=== PATIENT | male | born 1930 | race Caucasian/White ===

== ENCOUNTER 2018-04-10 14:47 | Outpatient (CLI) | payer MEDICARE, OTHER ==
--- NOTE | 2018-04-11 00:14 | CT Report ---
Reason: AGE-RELATED COGNITIVE DECLINE Procedure Date: 04/10/2018 Accession Number: [id number] / [id number] Procedure: CT - Head W/O CPT Code: FULL RESULT: EXAM: CT HEAD EXAM DATE: 04/10/2018 03:23 PM. CLINICAL HISTORY: AGE-RELATED COGNITIVE DECLINE. COMPARISON: None. TECHNIQUE: Multiaxial CT images were obtained from the foramen magnum to the vertex. Reformats: Sagittal and coronal. IV contrast: None. In accordance with CT protocol optimization, one or more of the following dose reduction techniques were utilized for this exam: automated exposure control, adjustment of mA and/or KV based on patient size, or use of iterative reconstructive technique. FINDINGS: Parenchyma: No intraparenchymal hemorrhage. No evidence of mass, midline shift or CT findings of acute infarction. Magallanes-white differentiation is distinct. Diffuse mild chronic microangiopathic white matter changes are evident. Extraaxial Spaces: Normal for age. No subdural or epidural collections identified. Ventricles: The ventricles and cortical sulci are enlarged, consistent with age-related tissue loss. Sinuses: Imaged paranasal sinuses, orbits, and mastoids show no significant abnormality. Bones: No evidence of fracture or calvarial defect. Other: None. IMPRESSION: Mild senescent changes without evidence of acute intracranial abnormality. RADIA
== END 2018-04-10 14:48 | disposition home or self-care (01) ==
LOC: DI 14:47
PROVIDERS: ATTEND Family Medicine
DX: R41.81 Age-related cognitive decline (principal)
CPT/HCPCS: 70450

== ENCOUNTER 2020-10-31 17:14 | Outpatient (CLI) | payer MEDICARE, OTHER | END 2020-10-31 17:15 | disposition critical access hospital (66) | LOC: EMS 17:14 | DX: R46.89 Other symptoms and signs involving appearance and behavior (principal) | CPT/HCPCS: A0425; A0429 ==

== ENCOUNTER 2020-10-31 17:48 | Emergency (ER) | payer MEDICARE, OTHER ==
[2020-10-31 19:05] LABS: BASOPHILS % (AUTO) 0.3 %; EOSINOPHILS % (AUTO) 0.1 %; HCT - HEMATOCRIT 38.6 % (42.0-52.0); LYMPHOCYTES # (AUTO) 1.5 10^3/uL (1.5-3.5); LYMPHOCYTES % (AUTO) 21.7 %; MEAN CORPUSCULAR HGB CONC 33.7 g/dL (32.0-36.0); MEAN PLATELET VOLUME 9.8 fL (7.4-11.4); NEUTROPHILS # (AUTO) 4.1 10^3/uL (1.5-6.6); PLT - PLATELET COUNT 193 10^3/uL (130-450); RED BLOOD COUNT 3.94 10^6/uL (4.70-6.10); RED CELL DISTRIBUTION WIDTH 13.2 % (12.0-15.0); WHITE BLOOD COUNT 6.7 x10^3/uL (4.8-10.8)
--- NOTE | 2020-10-31 19:17 | ED Physician Documentation ---
History of Present Illness - Stated complaint Stated Complaint: DISORIENTED - Chief complaint Chief Complaint: General - History obtained from History obtained from: Patient, EMS - History of Present Illness Timing: Unknown Pain level max: 0 Pain level now: 0 - Additonal information Additional information: Patient is an 89-year-old male who was brought in by EMS today. They state that he was attempting to get on the [facility]. They state that the patient lives in [place]. He states that he could not find his wallet, it turned out to be in his other pocket. The patient lives alone. He states that his doctor so he stopped all of his medications. Does not know what his medications are. Patient has no complaints currently. EMS concerned for dementia and the fact that he lives alone. Review of Systems Unable to obtain: Confused Ten Systems: 10 systems reviewed and negative Constitutional: denies: Fever, Chills Nose: denies: Rhinorrhea / runny nose, Congestion Skin: denies: Rash Musculoskeletal: denies: Neck pain, Back pain Neurologic: reports: Confused. denies: Focal weakness, Numbness, Headache PD PAST MEDICAL HISTORY - Past Medical History Past Medical History: Yes Cardiovascular: Hypertension, High cholesterol, Coronary artery disease Respiratory: None Neuro: None Endocrine/Autoimmune: None GI: GERD : Benign prostate hypertrophy Psych: None Musculoskeletal: Osteoarthritis, Gout Derm: None - Past Surgical History Past Surgical History: No General: Colonoscopy HEENT: Cataracts, Tonsil/Adenoidectomy - Present Medications Home Medications: Ambulatory Orders Medication Instructions Recorded Confirmed Aspirin [Aspir 81] 81 mg PO 09/22/13 09/22/13 Gabapentin [Neurontin] 300 mg PO 09/22/13 09/22/13 Hydrochlorothiazide 25 mg PO 09/22/13 09/22/13 Lisinopril 10 mg PO 09/22/13 09/22/13 Simvastatin 40 mg PO 09/22/13 09/22/13 - Allergies Allergies/Adverse Reactions: Allergies Allergy/AdvReac Type Severity Reaction Status Date / Time Penicillins Allergy Intermediate Hives Verified 10/31/20 18:03 streptomycin [Streptomycin] Allergy Intermediate Unknown Verified 10/31/20 18:03 - Social History Does the pt smoke?: No Smoking Status: Never smoker Does the pt drink ETOH?: No Does the pt have substance abuse?: No - Immunizations Immunizations are current?: Yes - POLST Patient has POLST: No PD ED PE NORMAL - Vitals Vital signs reviewed: Yes - General General: No acute distress, Well developed/nourished, Other (Alert, oriented to person and place but not to time) - HEENT HEENT: Atraumatic, PERRL, Ears normal, Moist mucous membranes, Pharynx benign - Neck Neck: Supple, no meningeal sign - Cardiac Cardiac: RRR, Strong equal pulses - Respiratory Respiratory: No respiratory distress, Clear bilaterally - Abdomen Abdomen: Soft, Non tender, Non distended - Back Back: No spinal TTP - Derm Derm: Warm and dry, No rash - Extremities Extremities: No deformity, Normal ROM s pain, No calf tenderness / cord - Neuro Neuro: chick grader 2-12 intact, No motor deficit, No sensory deficit Eye Opening: Spontaneous Motor: Obeys Commands Verbal: Confused GCS Score: 14 - Psych Psych: Normal mood, Normal affect Results - Vitals Vitals: Vital Signs - 24 hr 10/31/20 10/31/20 10/31/20 17:58 19:12 19:20 Temperature 37.6 C 98.1 C H Heart Rate 77 71 Respiratory 14 16 Rate Blood Pressure 185/86 H 160/101 H O2 Saturation 100 100 10/31/20 10/31/20 19:48 20:34 Temperature Heart Rate 72 Respiratory 16 16 Rate Blood Pressure O2 Saturation 98 Oxygen O2 Source Room air - Labs Labs: Laboratory Tests 10/31/20 10/31/20 10/31/20 18:58 18:58 18:58 WBC 6.7 RBC 3.94 L Hgb 13.0 L Hct 38.6 L MCV 98.0 H MCH 33.0 H MCHC 33.7 RDW 13.2 Plt Count 193 MPV 9.8 Neut # (Auto) 4.1 Lymph # (Auto) 1.5 [place] # (Auto) 1.0 Eos # (Auto) 0.0 Baso # (Auto) 0.0 Absolute Nucleated RBC 0.00 Nucleated RBC % 0.0 Sodium 137 Potassium 4.1 Chloride 98 L Carbon Dioxide 22 Anion Gap 17.0 H BUN 22 H Creatinine 0.9 Estimated GFR (MDRD) 80 L Glucose 93 Calcium 9.6 Total Bilirubin 2.5 H AST 27 ALT 13 Alkaline Phosphatase 64 Total Protein 6.6 L Albumin 3.7 Globulin 2.9 Albumin/Globulin Ratio 1.3 Lipase 29 TSH 2.30 Salicylates < 6.0 Acetaminophen 12 Ethyl Alcohol < 5.0 - Rads (name of study) head CT Radiology: Prelim report reviewed, EMP read contemporaneously, See rad report (no acute abnormality. ) PD MEDICAL DECISION MAKING - ED course Complexity details: reviewed old records, reviewed results, re-evaluated patient, considered differential, d/w patient ED course: No acute findings on head CT or laboratory testing. Patient reportedly does not have any family nearby. He does have an executor of his estate that lives in [place]. There apparently has been ongoing cognitive decline for the past 1 to 2 years. We will consult social work in the morning to see if placement is a potential option for him. APS will likely need to be involved to evaluate his living situation as well. No urinalysis is complete at the end of my shift, signed out to the oncoming emergency department physician for social work consult and urinalysis. This document was made in part using voice recognition software. While efforts are made to proofread this document, sound alike and grammatical errors may occur. Departure - Departure Clinical Impression: Confusion Condition: Stable
[2020-10-31 19:22] LABS: ACETAMINOPHEN 12 ug/mL (10-30); ALBUMIN 3.7 g/dL (3.2-5.5); ALBUMIN/GLOBULIN RATIO 1.3 (1.0-2.2); ALKALINE PHOSPHATASE 64 IU/L (42-121); ALT ALANINE AMINOTRANSFERASE 13 IU/L (10-60); AST ASPARTATE AMINOTRANSFERASE 27 IU/L (10-42); BILIRUBIN,TOTAL 2.5 mg/dL (0.2-1.0); BUN - BLOOD UREA NITROGEN 22 mg/dL (6-20); CALCIUM 9.6 mg/dL (8.5-10.3); CARBON DIOXIDE - CO2 22 mmol/L (21-32); CHLORIDE 98 mmol/L (101-111); CREATININE 0.9 mg/dL (0.6-1.2); ETOH - ETHANOL < 5.0 mg/dL; GFR - MDRD 80 (>89); GLUCOSE 93 mg/dL (70-100); LIPASE 29 U/L (22-51); POTASSIUM 4.1 mmol/L (3.5-5.0); SALICYLATE < 6.0 mg/dL; SODIUM 137 mmol/L (135-145); TOTAL PROTEIN 6.6 g/dL (6.7-8.2)
--- NOTE | 2020-10-31 19:54 | CT Report ---
PROCEDURE: HEAD WO INDICATIONS: aloc TECHNIQUE: Noncontrast 4.5 mm thick angled axial sections acquired from the foramen magnum to the vertex. For r adiation dose reduction, the following was used: automated exposure control, adjustment of mA and/or kV according to patient size. COMPARISON: 04/10/2018. FINDINGS: Image quality: There is mild motion artifact. CSF spaces: There is moderate cerebral volume loss with prominence of the ventricles and sulci. Basa l cisterns are patent. No extra-axial fluid collections. Brain: No intracranial hemorrhage, mass, or mass effect. There are periventricular and subcortical w susie matter hypodensities consistent with mild chronic small vessel ischemic changes. Magallanes-white sonali er interface appears preserved. Skull and face: Calvarium and visualized facial bones are intact, without suspicious lesions. Sinuses: Visualized sinuses and mastoids are clear. IMPRESSION: 1. No acute intracranial abnormality. 2. Moderate cerebral volume loss and mild chronic white matter small vessel ischemic changes. Reviewed by: Dhiraj Crow MD on 10/31/2020 7:53 PM PDT Approved by: Dhiraj Crow MD on 10/31/2020 7:53 PM PDT Station ID: [id number]
[2020-10-31] MEDS ORDERED: OLANZapine 10 MG VIAL IM STA (23:56)
--- NOTE | 2020-11-01 00:29 | ED Physician Documentation ---
ED Addendum - Addendum Addendum: 11/01/20 00:19 Received sign out from Dr. Mcneal, plan is to hold patient in ED until SW consult in the morning. Patient became increasing agitated early in my shift and demanding to leave. I assessed patient and he is very confused, accusing me of trying to kill him. He asks me how many people I kill per day. He is angry with me and says I took patient from his car and forced him to come here, although he cannot identify where he is at this time. He became violent with staff, threatening to hit ED staff. Despite my attempts to deescalate the situation by talking calmly to patient and explaining to him that I am trying to help him and that he is confused, he continued to try to get out of bed and demanding to leave. He is given zyprexa IM as a chemical restraint but did not require physical restraint. I stayed with patient until he became drowsy to ensure he would not get out of bed again. 11/01/20 18:17 Care of patient turned over to Dr. Lux at end of my shift pending SW consult Face to Face for Restraints - Immediate Situation Face to Face Evaluation Date: 11/01/20 Face to Face Evaluation Time: 00:00 Restraint Situation: Chemical Patient's Reactions to the Intervention: Asking for information, Swearing, Other (angry, delusional/confused ) - Behavioral Condition Attitude: Other (angry, accusatory) Behavior: Uncooperative, Agitated Orientation: Person Mood: Angry - Evaluation Review of Systems: uncooperative with my attempts to obtain ROS information Pertinent History/Illicit Drugs/Medications/Results: confused, unable to provide reliable PMHx. - Plan Need to Continue or Terminate Violent or Chemical Restraint: chemical restraints only (no restraints to discontinue)
[2020-11-01 04:55] LABS: MUDS CUTOFF CONCENTRATIONS CUTOFF CONC BELOW:
[2020-11-01 05:10] LABS: GLUCOSE, URINE (UA) NEGATIVE (NEGATIVE); KETONES,URINE (UA) >=80 mg/dL (NEGATIVE); LEUKOCYTE ESTERASE, URINE NEGATIVE (NEGATIVE); NITRITE,URINE NEGATIVE (NEGATIVE); OCCULT BLOOD,URINE NEGATIVE (NEGATIVE); PROTEIN,URINE NEGATIVE (NEGATIVE); UROBILINOGEN,URINE >=8.0 E.U./dL (NORMAL)
[2020-11-01 05:12] LABS: BACTERIA,URINE Rare /HPF (None Seen); BILIRUBIN,URINE NEGATIVE (NEGATIVE); CLARITY,URINE HAZY (CLEAR); ICTOTEST,URINE NEGATIVE; RBC,URINE 0-5 /HPF (0-5); SQUAMOUS EPITHELIAL CELL,UR RARE Squamous (<= Few); WBC,URINE 0-3 /HPF (0-3)
[2020-11-01 05:13] LABS: AMORPHOUS SEDIMENT,UR Moderate /LPF; AMPHETAMINE SCREEN,URINE NEGATIVE (NEGATIVE); BARBITURATE SCREEN,UR NEGATIVE (NEGATIVE); BENZODIAZEPINES SCREEN, URINE NEGATIVE (NEGATIVE); COCAINE SCREEN URINE NEGATIVE (NEGATIVE); METHADONE SCREEN, URINE NEGATIVE (NEGATIVE); METHAMPHETAMINES SCREEN, URINE NEGATIVE (NEGATIVE); OPIATE SCREEN, URINE NEGATIVE (NEGATIVE); OXYCODONE SCREEN, URINE NEGATIVE (NEGATIVE); PROPOXYPHENE SCREEN, URINE NEGATIVE (NEGATIVE); THC CANNABINOID SCREEN, URINE NEGATIVE (NEGATIVE); TRICYCLIC ANTIDEPRESSANT,URINE NEGATIVE (NEGATIVE)
--- NOTE | 2020-11-01 10:32 | ED Physician Documentation ---
ED Addendum - Addendum Addendum: The patient seems to be calm and interactive well this morning. He can relate events from last evening. He was hungry for breakfast. Social work talked with the patient and his friend who is named in his healthcare power of customer quality specialist (but does not currently have full power of customer quality specialist ). The friend is coming here by plane in should be arriving this evening with likely arriving in the ER around 6 PM. The plan is for his friend to get the car keys for patient's car and go to where the car is parked pick it up come back and bring the patient home and be with him. They will look into home health aides versus assisted living etc. Apparently the patient had been having some declining dementia for a while but there had not been a plan per se for if he becomes harder to care for himself. The social workers providing resources to them to help with subsequent planning. 11/01/20 10:30
[2020-11-01] MEDS ORDERED: QUEtiapine 100 MG TABLET PO STA (20:52)
[2020-11-01] MEDS ORDERED: traZODone 50 MG TABLET PO STA (20:52)
--- NOTE | 2020-11-02 21:05 | ED Physician Documentation ---
ED Addendum - Addendum Addendum: 11/02/20 21:05 Patient was stable today. Now reportedly plan is for him to go to assisted living tomorrow. They requested a prescription for as needed antianxiety medicine and prescription for Seroquel 50 mg p.o. twice daily as needed anxiety #60 was written.
[2020-11-03 09:34] VITALS: BP 128/83
== END 2020-11-03 10:25 | disposition home or self-care (01) ==
LOC: EDUNIT# → ED 17:48
DX: R41.0 Disorientation, unspecified (principal); R45.1 Restlessness and agitation; I10 Essential (primary) hypertension
CPT/HCPCS: 36415; 70450; 80053; 80306; 80307; 81001; 83690; 84443; 85025; 96372; 99283; 99285; A9270; G0480; 80320; 80329; 81003; 87086

== ENCOUNTER 2020-11-03 10:44 | Outpatient (CLI) | payer MEDICARE, OTHER | END 2020-11-03 10:45 | disposition other institution (70) | LOC: EMS 10:44 | PROVIDERS: ATTEND Emergency Medicine | DX: R41.0 Disorientation, unspecified (principal) | CPT/HCPCS: A0425; A0428 ==

== ENCOUNTER 2020-11-03 18:37 | Outpatient (CLI) | payer MEDICARE, OTHER | END 2020-11-03 18:38 | disposition critical access hospital (66) | LOC: EMS 18:37 | DX: S00.03XA Contusion of scalp, initial encounter (principal); W19.XXXA Unspecified fall, initial encounter; Y92.10 Unspecified residential institution as the place of occurrence of the external cause | CPT/HCPCS: A0425; A0429 ==

== ENCOUNTER 2020-11-03 18:55 | Inpatient (IN) | payer MEDICARE, OTHER ==
--- NOTE | 2020-11-03 19:03 | ED Physician Documentation ---
PD HPI Fall - Stated complaint Stated Complaint: FOUND ON THE GROUND - History obtained from History obtained from: EMS - Treatment prior to arrival Treatment prior to arrival: 89-year-old gentleman who was in the emergency department for several days and discharged yesterday to assisted living reportedly had an unwitnessed fall at the assisted living facility today. He was on the ground for up to 2 hours basically may have fallen off the couch. He is unable to provide any history due to altered mental status and dementia. Review of Systems Unable to obtain: Dementia PD PAST MEDICAL HISTORY - Past Medical History Cardiovascular: Hypertension, High cholesterol, Coronary artery disease Respiratory: None Neuro: None Endocrine/Autoimmune: None GI: GERD : Benign prostate hypertrophy Psych: None Musculoskeletal: Osteoarthritis, Gout Derm: None - Past Surgical History Past Surgical History: No General: Colonoscopy HEENT: Cataracts, Tonsil/Adenoidectomy - Present Medications Home Medications: Ambulatory Orders Medication Instructions Recorded Confirmed Aspirin [Aspir 81] 81 mg PO 09/22/13 09/22/13 Gabapentin [Neurontin] 300 mg PO 09/22/13 09/22/13 Hydrochlorothiazide 25 mg PO 09/22/13 09/22/13 Lisinopril 10 mg PO 09/22/13 09/22/13 Simvastatin 40 mg PO 09/22/13 09/22/13 QUEtiapine [SEROquel] 50 mg PO BID PRN #60 tablet 11/02/20 - Allergies Allergies/Adverse Reactions: Allergies Allergy/AdvReac Type Severity Reaction Status Date / Time Penicillins Allergy Intermediate Hives Verified 11/03/20 19:04 streptomycin [Streptomycin] Allergy Intermediate Unknown Verified 11/03/20 19:04 - Social History Does the pt smoke?: No Smoking Status: Never smoker Does the pt drink ETOH?: No Does the pt have substance abuse?: No - Immunizations Immunizations are current?: Yes - POLST Patient has POLST: No PD ED PE NORMAL - Vitals Vital signs reviewed: Yes - General General: Other (He is moaning in pain, talking in gibberish. Really unable to cooperate with history or physical) - HEENT HEENT: PERRL - Neck Neck: No bony TTP (But maintained in c-collar pending imaging) - Cardiac Cardiac: RRR, No murmur - Respiratory Respiratory: No respiratory distress, Clear bilaterally - Abdomen Abdomen: Normal bowel sounds, Soft, Non tender - Back Back: Other (I think he is tender to the mid L-spine, hard to tell) - Extremities Extremities: No deformity, No tenderness to palpate, Normal ROM s pain, Other (No obvious pain with range of motion of any major extremity) - Neuro Eye Opening: To Voice Motor: Localizes to Pain Verbal: Inappropriate GCS Score: 11 Results - Vitals Vitals: Vital Signs - 24 hr 11/03/20 11/03/20 11/03/20 19:00 19:04 19:10 Temperature 36.7 C 36.7 C 36.7 C Heart Rate 81 82 81 Respiratory 19 19 19 Rate Blood Pressure 124/91 H 124/91 H 125/90 H O2 Saturation 99 99 99 Oxygen O2 Source Room air - Labs Labs: Laboratory Tests 11/03/20 11/03/20 11/03/20 19:12 19:12 20:37 WBC 13.3 H RBC 3.99 L Hgb 13.3 L Hct 39.4 L MCV 98.7 H MCH 33.3 H MCHC 33.8 RDW 13.2 Plt Count 234 MPV 9.7 Neut # (Auto) 10.2 H Lymph # (Auto) 1.8 [place] # (Auto) 1.2 H Eos # (Auto) 0.0 Baso # (Auto) 0.0 Absolute Nucleated RBC 0.00 Nucleated RBC % 0.0 Sodium 139 Potassium 4.2 Chloride 102 Carbon Dioxide 26 Anion Gap 11.0 BUN 33 H Creatinine 0.9 Estimated GFR (MDRD) 80 L Glucose 101 H Calcium 9.8 Phosphorus 2.5 Magnesium 2.0 Total Bilirubin 2.0 H AST 54 H ALT 22 Alkaline Phosphatase 58 Total Creatine Kinase 239 Total Protein 6.8 Albumin 3.7 Globulin 3.1 Albumin/Globulin Ratio 1.2 Urine Color DARK YELLOW Urine Clarity CLEAR Urine pH 5.5 Ur Specific [place] >=1.030 H Urine Protein TRACE Urine Glucose (UA) NEGATIVE Urine Ketones 40 H Urine Occult Blood LARGE H Urine Nitrite NEGATIVE Urine Bilirubin NEGATIVE Urine Urobilinogen 1 (NORMAL) Ur Leukocyte Esterase TRACE H Urine RBC TNTC H Urine WBC 6-10 H Ur Squamous Epith Cells FEW Squamous Urine Bacteria None Seen Ur Microscopic Review INDICATED Urine Culture Comments INDICATED - Rads (name of study) CT head, CT and L-spine's Radiology: EMP read contemporaneously (Chronic and degenerative changes without acute trauma) PD MEDICAL DECISION MAKING - ED course ED course: 89-year-old gentleman with dementia presents from Assisted living where he has been only for 1 day after what sounds like a fall off the couch with unknown downtime but not more than a few hours. He seems like he is complaining of back pain in the spine and head were imaged without pertinent positive findings. He does have an elevated white count, 13 today, 11 a few days ago. He had no evidence of pyuria the other day but does now. His encephalopathy is much more dense than it was previously. Assume underlying medical conditions such as UTI making his dementia/encephalopathy worsening mandates treatment because of elevated white count and worsening indices. Spoke with Dr. Rodríguez for admission at 9 PM. Departure - Departure Disposition: ED Place in Observation Clinical Impression: Encephalopathy, Pyuria Fall Qualifiers: Encounter type: initial encounter Qualified Code(s): W19.XXXA - Unspecified fall, initial encounter Back injury Qualifiers: Encounter type: initial encounter Qualified Code(s): S39.92XA - Unspecified injury of lower back, initial encounter Head injury Qualifiers: Encounter type: initial encounter Qualified Code(s): S09.90XA - Unspecified injury of head, initial encounter Condition: Stable
[2020-11-03 19:15] LABS: BASOPHILS % (AUTO) 0.2 %; EOSINOPHILS % (AUTO) 0.2 %; HCT - HEMATOCRIT 39.4 % (42.0-52.0); HGB - HEMOGLOBIN 13.3 g/dL (14.0-18.0); LYMPHOCYTES # (AUTO) 1.8 10^3/uL (1.5-3.5); LYMPHOCYTES % (AUTO) 13.4 %; MEAN CORPUSCULAR HEMOGLOBIN 33.3 pg (27.0-31.0); MEAN CORPUSCULAR HGB CONC 33.8 g/dL (32.0-36.0); MEAN CORPUSCULAR VOLUME 98.7 fL (80.0-94.0); MEAN PLATELET VOLUME 9.7 fL (7.4-11.4); MONOCYTES # (AUTO) 1.2 10^3/uL (0.0-1.0); MONOCYTES % (AUTO) 8.8 %; NEUTROPHILS # (AUTO) 10.2 10^3/uL (1.5-6.6); NEUTROPHILS % (AUTO) 76.5 %; PLT - PLATELET COUNT 234 10^3/uL (130-450); RED BLOOD COUNT 3.99 10^6/uL (4.70-6.10); RED CELL DISTRIBUTION WIDTH 13.2 % (12.0-15.0); WHITE BLOOD COUNT 13.3 x10^3/uL (4.8-10.8)
[2020-11-03 19:30] LABS: ALBUMIN 3.7 g/dL (3.2-5.5); ALBUMIN/GLOBULIN RATIO 1.2 (1.0-2.2); CALCIUM 9.8 mg/dL (8.5-10.3); CREATININE 0.9 mg/dL (0.6-1.2); PHOSPHORUS 2.5 mg/dL (2.5-4.6); POTASSIUM 4.2 mmol/L (3.5-5.0); TOTAL PROTEIN 6.8 g/dL (6.7-8.2)
--- NOTE | 2020-11-03 19:53 | CT Report ---
PROCEDURE: HEAD WO INDICATIONS: fall, , poss head inj/neck pain/ams TECHNIQUE: Noncontrast 4.5 mm thick angled axial sections acquired from the foramen magnum to the vertex. For r adiation dose reduction, the following was used: automated exposure control, adjustment of mA and/or kV according to patient size. COMPARISON: 10/31/2020 FINDINGS: Image quality: Excellent. CSF spaces: Basal cisterns are patent. No extra-axial fluid collections. Ventricles are normal in size and shape. Age-related volume loss is moderate. Subcortical and periventricular hypodensities a re consistent with small vessel ischemia. Brain: No midline shift. No intracranial masses or hemorrhage. Magallanes-white matter interface is norm al. Skull and face: Calvarium and visualized facial bones are intact, without suspicious lesions. Sinuses: Visualized sinuses and mastoids are clear. IMPRESSION: 1. No acute intracranial abnormality. 2. Age-related volume loss and chronic small vessel ischemic changes. Reviewed by: Jesus Randolph on 11/03/2020 7:51 PM PDT Approved by: Jesus Randolph on 11/03/2020 7:51 PM PDT Station ID: [id number]
--- NOTE | 2020-11-03 19:55 | CT Report ---
PROCEDURE: CERVICAL SPINE WO INDICATIONS: fall, , poss head inj/neck pain/ams TECHNIQUE: Noncontrast 3 mm thick sections acquired from the skull base to the T4 level. Sagittal and coronal r eformats were then constructed. For radiation dose reduction, the following was used: automated exp osure control, adjustment of mA and/or kV according to patient size. COMPARISON: None. FINDINGS: Image quality: Excellent. Bones: No fractures or dislocations. Visualized superior ribs are intact. There are multilevel deg enerative changes and multilevel disc disease. Soft tissues: Prevertebral soft tissues are normal in thickness. No paravertebral hematomas. No ap ical pneumothoraces. IMPRESSION: Multilevel degenerative changes of the cervical spine. No acute traumatic abnormality. Reviewed by: Jesus Randolph on 11/03/2020 7:54 PM PDT Approved by: Jesus Randolph on 11/03/2020 7:54 PM PDT Station ID: [id number]
--- NOTE | 2020-11-03 19:59 | CT Report ---
PROCEDURE: LUMBAR SPINE WO INDICATIONS: fall, , poss head inj/neck pain/ams TECHNIQUE: Noncontrast 3 mm thick sections acquired from the T12 level to the sacrum. Sagittal and coronal refo rmats were constructed. For radiation dose reduction, the following was used: automated exposure co ntrol, adjustment of mA and/or kV according to patient size. COMPARISON: None. FINDINGS: Image quality: Excellent. Bones: Severe multilevel degenerative changes and multilevel disc disease. No acute vertebral body co mpression fractures. No suspicious lytic or blastic bony lesions. Central spinal caliber is of norm al overall caliber. No pars defects. L1-2: Complete loss of the disc space with disc osteophytes causing severe right and moderate left f oraminal stenosis. The central canal has moderate stenosis. L1-L2: Disc height loss with disc osteophytes causing severe bilateral foraminal stenosis. The mickey tral canal has moderate stenosis. L3-4: L2 30 Disc height loss with disc osteophytes cause moderate bilateral foraminal stenosis. Th e central canal has moderate stenosis. L4-L5: Degenerative disc disease causes moderate bilateral foraminal stenosis. The central canal is mild stenosis. L5-S1: Moderate disc disease and disc osteophytes cause mild bilateral foraminal stenosis. Soft tissues: No retroperitoneal masses or hematomas. Visualized aorta is normal in caliber. IMPRESSION: 1. No acute traumatic abnormality of the lumbar spine. 2. The level degenerative disc disease. Reviewed by: Jesus Randolph on 11/03/2020 7:57 PM PDT Approved by: Jesus Randolph on 11/03/2020 7:57 PM PDT Station ID: [id number]
--- NOTE | 2020-11-03 20:01 | CT Report ---
PROCEDURE: THORACIC SPINE WO INDICATIONS: fall, , poss head inj/neck pain/ams TECHNIQUE: Noncontrast 3 mm thick sections acquired through the region of interest in the thoracic spine. Sagit fransisco and coronal reformats were then constructed. For radiation dose reduction, the following was used : automated exposure control, adjustment of mA and/or kV according to patient size. COMPARISON: None. FINDINGS: Image quality: Excellent. Bones: There is normal overall bony alignment. No acute vertebral body compression fractures. No s uspicious sclerotic or lytic bony lesions. Central spinal canal is of normal overall caliber. The b ones are demineralized. There are multilevel degenerative changes and multilevel disc disease. There is rightward curvature of the thoracic spine and kyphosis of the thoracic spine. Soft tissues: No paravertebral masses or hematomas. Visualized posteromedial lungs appear clear. IMPRESSION: Multilevel degenerative changes of the thoracic spine with no acute traumatic abnormality . Reviewed by: Jesus Randolph on 11/03/2020 7:59 PM PDT Approved by: Jesus Randolph on 11/03/2020 7:59 PM PDT Station ID: [id number]
[2020-11-03 20:46] LABS: GLUCOSE, URINE (UA) NEGATIVE (NEGATIVE); KETONES,URINE (UA) 40 mg/dL (NEGATIVE); LEUKOCYTE ESTERASE, URINE TRACE (NEGATIVE); NITRITE,URINE NEGATIVE (NEGATIVE); OCCULT BLOOD,URINE LARGE (NEGATIVE); PH,URINE 5.5 PH (5.0-7.5); PROTEIN,URINE TRACE mg/dL (NEGATIVE); UROBILINOGEN,URINE 1 (NORMAL) E.U./dL (NORMAL)
[2020-11-03 20:51] LABS: BILIRUBIN,URINE NEGATIVE (NEGATIVE); CLARITY,URINE CLEAR (CLEAR); ICTOTEST,URINE NEGATIVE; RBC,URINE TNTC /HPF (0-5)
[2020-11-03 20:52] LABS: BACTERIA,URINE None Seen /HPF (None Seen); SQUAMOUS EPITHELIAL CELL,UR FEW Squamous (<= Few)
[2020-11-03] MEDS ORDERED: cefTRIAXone 1 GM in SODIUM CHLORIDE 0.9% MINIBAG 100 ML IV STA (21:00)
[2020-11-03] MEDS ORDERED: oxyCODONE 5 MG TABLET PO PRN (21:00)
[2020-11-03] MEDS ORDERED: ACETAMINOPHEN 325 MG TABLET PO PRN (21:00)
[2020-11-03] MEDS ORDERED: SODIUM CHLORIDE FLUSH 0.9% 10 ML SYRINGE IVP PRN (21:00)
[2020-11-03] MEDS ORDERED: ONDANSETRON 4 MG/2 ML VIAL IVP PRN (21:00)
[2020-11-03] MEDS ORDERED: ONDANSETRON ODT 4 MG TABLET TL PRN (21:00)
--- NOTE | 2020-11-03 21:12 | HISTORY & PHYSICAL EXAMINATION ---
Chief Complaint - Chief Complaint Chief Complaint: found down at [facility] History of Present Illness - Admitted From Admitted From:: [facility] after less than 12 hours there - History Obtained From Records Reviewed: [facility] History obtained from: J[facility] Casarez Exam Limitations: patient has moderate cognitive deficit and is sedated - History of Present Illness HPI Comment/Other: This is an 89-year-old gentleman who is seen by Dr. Alexander and has a history of age-related cognitive decline. We really do not have much about him in our EMR but he was seen October 31 due to erratic behavior. He lives in [place] and [place], could not find his wallet, and drove past the barrier and had to be told to please leave the ferry terminal. It made matters worse that he kept on saying he had to "[place] the [place]" and he did not seem to realize he was on the island. In the emergency room he had normal vital signs and normal labs. His main finding was that of a demented elderly gentleman who is quite querulous and irritated at being in the emergency room and insisting that he was "fine". Social work was consulted, and the patient ended up staying there in the emergency room until a friend of his/POA, could come assess the situation. His friend is his power of attorney recruiter. Kaz has known him since their friendship began in [place] in the 1970s. Kaz is a model photographers', and Mr. Sanches shared his love of photography but the patient was more dedicated to the art of a dark room, building them, etc. Kaz lives in [place] in [facility] and had to fly up here to take care of things. He is currently staying in the patient's house as the dust settles from this ongoing social situation. The patient was eventually placed at [facility] this morning. He was now brought in by EMS. He had an unwitnessed ground-level fall at [facility] where he had "fallen off a sofa" and lay on the ground for 2 hours without being found. He is much more encephalopathic than he was when he left here. He was pale, with unlabored respirations and normal blood pressure and normal oxygenation. He was evaluated by Dr. Narayan and found to be a minimally responsive elderly gentleman. Negative physical exam findings without focal neurological deficits. No abdominal pain. His labs show him to have a newly elevated white cell count of 13.3 and a urine that is mildly suggestive of possible infection. His previous urinalysis was completely clear. C-spine and thoracic spine CTs are negative. What we can see of lung acosta show him to have bibasilar atelectasis but no pneumonia. He is now brought in for acute encephalopathy, possible UTI. History - Past Medical History Cardiovascular: reports: Hypertension, High cholesterol, Coronary artery disease Respiratory: reports: None Neuro: reports: Dementia Endocrine/Autoimmune: reports: None GI: reports: GERD : reports: Benign prostate hypertrophy Psych: reports: None Musculoskeletal: reports: Osteoarthritis, Gout Derm: reports: None - Past Surgical History General: reports: Colonoscopy, Other (Bilateral inguinal hernia repairs) HEENT: reports: Cataracts, Tonsil/Adenoidectomy, Other (Thyroglossal duct cyst 1980) - Family & Social History Family History Comment/Other: Dad of a heart attack in his 60s. Mom of cancer in her 80s. No siblings, he was an only child. Never and never had children Living arrangement: Assisted living (All of 24 hours starting today) Living Situation: Alone Social History Notes: He was a "late in life" child. A slightly introverted gentleman. Was living in [place] doing photography when he met his power of attorney recruiter and friend Kaz Diaz. He moved to [facility] many years ago because he loves boating. He lived on a boat during the summer for decades. In the winter he house that friends houses. When his friends no longer needed him to house it, he ended up buying a mobile home and he lives in that mobile home for the last 15 years. He used to have a friend that he visited at [facility] 1-2 times a week. He knew quite a few people there and there is very content with the activities and the games they played there as well as visiting his friends. Unfortunately when Louie came, his entire group of friends is now , at least that is what he tells Kaz. He became very isolated living in his mobile home and staying in place. As far as Kaz knows he has no history of substance abuse, alcoholism, or smoking. - Substance History Use: Uses substance without health or social issues: NONE Abuse: Recurrent use of substance despite neg consequences: NONE Dependence: Experiences withdrawal or developed tolerances: NONE - POLST Patient has POLST: No POLST Status: DNR (Noted with colonoscopy in 2013) Meds/Allgy - Home Medications Home Medications: Ambulatory Orders Medication Instructions Recorded Confirmed Aspirin [Aspir 81] 81 mg PO 09/22/13 09/22/13 Gabapentin [Neurontin] 300 mg PO 09/22/13 09/22/13 Hydrochlorothiazide 25 mg PO 09/22/13 09/22/13 Lisinopril 10 mg PO 09/22/13 09/22/13 Simvastatin 40 mg PO 09/22/13 09/22/13 QUEtiapine [SEROquel] 50 mg PO BID PRN #60 tablet 11/02/20 - Allergies Allergies/Adverse Reactions: Allergies Allergy/AdvReac Type Severity Reaction Status Date / Time Penicillins Allergy Intermediate Hives Verified 11/03/20 19:04 streptomycin [Streptomycin] Allergy Intermediate Unknown Verified 11/03/20 19:04 Review of Systems - All Other Systems All Other Systems: reports: Other (At this time, due to the patient's sedation, cognitive deficits, unable to assess if full/accurate review of systems.) Prior Level of Functionality: This gentleman appears to have had a progressive cognitive decline over the yea rs. Came to a crisis earlier this week. Was driving a car erratically and his behavior is what caused him to come to the emergency room. Unclear if this gentleman was completely taking care of himself but apparently he was still living alone at home, dressing himself, feeding himself, getting help from his friend Kaz. Kaz was calling once or twice a month. Kaz used to come here once a year to visit him but the patient started refusing that visit. This was probably 2 years ago. Exam - Vital Signs Reviewed Vital Signs: Yes Vital Signs: Vital Signs x48h Temp Pulse Resp BP Pulse Ox 11/03/20 21:10 36.8 C 89 18 132/91 H 97 11/03/20 19:10 36.7 C 81 19 125/90 H 99 11/03/20 19:04 36.7 C 82 19 124/91 H 99 11/03/20 19:00 36.7 C 81 19 124/91 H 99 - Physical Exam General Appearance: positive: No acute distress, Alert (But slow to move. While he hears me, he is not able to answer any my questions and speech is fast, pressured, and making absolutely no sense.), Other (Gaunt, cachectic, disheveled with a partially grown and redmond, sparse hair with balding) Eyes Bilateral: positive: PERRL, EOMI ENT: positive: Dry mucous membranes, Other (No teeth) Neck: positive: No JVD. negative: Lymphadenopathy (R), Lymphadenopathy (L), Stiff neck Respiratory: positive: No respiratory distress. negative: Wheezes, Rales, Rhonchi Cardiovascular: positive: Regular rate & rhythm, Systolic murmur. negative: Gallop/S4, Friction rub Peripheral Pulses: positive: 1+ Abdomen: positive: Non-tender, No organomegaly, Nml bowel sounds, No distention, Other (Diaper in place) Skin: positive: Warm, Dry, Other (Multiple, multiple large bruises around his elbows, forearms from blood draws, hitting the bed rails, and IVs. No skin tears visible. No decubiti visible.) Extremities: positive: Full ROM (Spontaneously. He keeps on reaching for the bed rails, the sheets, his feet. He bends and flexes his knees spontaneously to try and make himself more comfortable.), No pedal edema Neurologic/Psychiatric: positive: CN's nml (2-12), Motor nml, Disoriented to person, Disoriented to place, Disoriented to time, Weakness, Slurred/abnml speech Conclusion/Plan - Problem List (1) Acute encephalopathy Conclusion/Plan: While he has dementia as his diagnosis from October 31 and from his previous lab evaluation with his PCP in 2018, he was described as alert, argumentative, queroulous but not encephalopathic. That was up till this morning. He has left here and gone to an assisted living facility and now returns after being found down on the ground for possibly 2 hours. Differential diagnosis would include stroke but his CT of head is negative. Infection of which she does have suggestion with an elevated white cell count, and a turbid UA that was not present before. But no pneumonia. Medication effect could be an issue in that he was placed on Seroquel starting October 31 and was not on any medication prior to that. Plan: Observation status Continue to monitor for signs and symptoms of stroke or infection Empiric antibiotic therapy. He was given Rocephin in the emergency room but he is allergic to penicillin and I will be switching him over to a quinolone since he has a previous history of BPH and may have a UTI. Covid status ordered since the patient did not have it before he went to the assisted living facility and is now about to come into the hospital (2) HTN (hypertension) Conclusion/Plan: Resume his lisinopril with parameters. His lisinopril is on previous medication list. His physician is Dr. Alexander but the patient is adamant that Dr. Alexander is "". Unfortunately it is Friday evening. PCP office will be closed at this time and not open until Friday. Qualifiers: Hypertension type: essential hypertension Qualified Code(s): I10 - Essential (primary) hypertension (3) Dementia with behavioral disturbance Conclusion/Plan: This mainly consist of just being unaware of his disease status. Being alone fo r so long and not having anybody to guide him. Plan: Resume Seroquel but at 25 mg not 50 mg I contacted his power of attorney recruiter, Kaz Glaser. Social work consult Adult Protective Services report already filed through the emergency room. I would request that we file another 1 with this current state. This would be due to self-neglect. Qualifiers: Dementia type: Alzheimer's Alzheimer's disease onset: unspecified onset Qualified Code(s): G30.9 - Alzheimer's disease, unspecified; F02.81 - Dementia in other diseases classified elsewhere with behavioral disturbance (4) Do not resuscitate Conclusion/Plan: Patient has stated this is a desire as far back as his colonoscopy in the medical record. His power of attorney recruiter confirms that the patient has always stated this and that will be honored. - Lab Results Lab results reviewed: Yes Fish Bones: 11/03/20 19:12 11/03/20 19:12 - Diagnostic Imaging Results Diagnostic Imaging Results: positive: Final report reviewed - EKG Results EKG Interpreted Independently: No Core Measures - Anticipated LOS I expect patient to be DC'd or transferred within 96 hours.: Yes - DVT/VTE - Prophylaxis VTE/DVT Device ordered at admit?: Yes
[2020-11-03] MEDS ORDERED: cefTRIAXone 1 GM VIAL ONE (21:13)
[2020-11-03] MEDS: HEPARIN 5,000 UNIT/ML VIAL SUBQ SCH (21:50)
[2020-11-03] MEDS: LACTATED RINGERS 1,000 ML IV SCH (21:55)
[2020-11-03] MEDS ORDERED: levoFLOXacin 500 MG/100 ML 500 MG/100 ML BAG IV ONE (22:00)
[2020-11-03 22:05] LABS: B. PARAPERTUSSIS- RESP PCR PAN NOT DETECTED; B. PERTUSSIS- RESP PCR PANEL NOT DETECTED; C. PNEUMONIAE- RESP PCR PANEL NOT DETECTED; CORONAVIRUS 229E-RESP PCR NOT DETECTED; CORONAVIRUS HKU1-RESP PCR NOT DETECTED; CORONAVIRUS NL63-RESP PCR NOT DETECTED; CORONAVIRUS OC43-RESP PCR NOT DETECTED; HUMAN METAPNEUMOVIRUS NOT DETECTED; INFLUENZA A- RESP PCR PANEL NOT DETECTED; INFLUENZA B - RESP PCR PANEL NOT DETECTED; M. PNEUMONIAE- RESP PCR PANEL NOT DETECTED; PARAINFLUENZA VIRUS 1 NOT DETECTED; PARAINFLUENZA VIRUS 2 NOT DETECTED; PARAINFLUENZA VIRUS 3 NOT DETECTED; PARAINFLUENZA VIRUS 4 NOT DETECTED; RHINOVIRUS/ENTEROVIRUS NOT DETECTED; RSV- RESP PCR PANEL NOT DETECTED; SARS-CoV-2 -RESP PCR PANEL NOT DETECTED
--- NOTE | 2020-11-03 22:14 | XRAY Report ---
PROCEDURE: Chest 1 View X-Ray INDICATIONS: leukocytosis TECHNIQUE: One view of the chest was acquired. COMPARISON: None FINDINGS: Surgical changes and devices: None. Lungs and pleura: No pleural effusions or pneumothorax. Lungs are clear. Mediastinum: Mediastinal contours appear normal. Heart size is normal. Bones and chest wall: No suspicious bony lesions. Overlying soft tissues appear unremarkable. IMPRESSION: No acute cardiopulmonary abnormality. Reviewed by: Jesus Randolph on 11/03/2020 10:12 PM PDT Approved by: Jesus Randolph on 11/03/2020 10:12 PM PDT Station ID: [id number]
[2020-11-03] MEDS: SODIUM CHLORIDE FLUSH 0.9% 10 ML SYRINGE IVP SCH (23:26)
[2020-11-04] MEDS ORDERED: POTASSIUM CHLORIDE 20 MEQ TABLET PO ONE (00:43)
[2020-11-04 05:16] LABS: BASOPHILS % (AUTO) 0.3 %; EOSINOPHILS % (AUTO) 0.1 %; HCT - HEMATOCRIT 34.9 % (42.0-52.0); HGB - HEMOGLOBIN 11.4 g/dL (14.0-18.0); LYMPHOCYTES # (AUTO) 1.8 10^3/uL (1.5-3.5); MEAN CORPUSCULAR HEMOGLOBIN 32.6 pg (27.0-31.0); MEAN CORPUSCULAR HGB CONC 32.7 g/dL (32.0-36.0); MEAN CORPUSCULAR VOLUME 99.7 fL (80.0-94.0); MEAN PLATELET VOLUME 10.4 fL (7.4-11.4); MONOCYTES # (AUTO) 1.1 10^3/uL (0.0-1.0); MONOCYTES % (AUTO) 10.2 %; NEUTROPHILS # (AUTO) 7.5 10^3/uL (1.5-6.6); NEUTROPHILS % (AUTO) 71.7 %; PLT - PLATELET COUNT 197 10^3/uL (130-450); RED CELL DISTRIBUTION WIDTH 13.2 % (12.0-15.0); WHITE BLOOD COUNT 10.5 x10^3/uL (4.8-10.8)
[2020-11-04 05:26] LABS: CALCIUM 8.9 mg/dL (8.5-10.3); CREATININE 0.7 mg/dL (0.6-1.2); POTASSIUM 3.6 mmol/L (3.5-5.0)
[2020-11-04] MEDS ORDERED: POTASSIUM CHLORIDE 20 MEQ TABLET PO SCH (08:00)
[2020-11-04] MEDS: LACTATED RINGERS 1,000 ML IV SCH (09:13)
[2020-11-04] MEDS: SODIUM CHLORIDE FLUSH 0.9% 10 ML SYRINGE IVP SCH ×2 (09:15→16:57)
[2020-11-04] MEDS: HEPARIN 5,000 UNIT/ML VIAL SUBQ SCH ×2 (09:16→21:13)
[2020-11-04] MEDS: lisinopriL 5 MG TABLET PO SCH (13:31)
[2020-11-04] MEDS: MIN OIL/DIMETHICON/COCONUT OIL 92 GM TUBE TOP PRN ×2 (13:33→16:18)
--- NOTE | 2020-11-04 15:31 | PROVIDER PROGRESS NOTE ---
Subjective - Prog Note Date Prog Note Date: 11/04/20 - Subjective Subjective: He reports feeling tired and is wanting to sleep all day today. He tells me he knows where he has but will not tell me the location. He denies any pain. Current Medications - Current Medications Current Medications: Active Medications Acetaminophen (Acetaminophen 325 Mg Tablet) 650 mg PO Q4HR PRN PRN Reason: Pain 1 to 4 Heparin Sodium (Porcine) (Heparin 5,000 Unit/Ml Vial) 5,000 unit SUBQ BID [facility] Last Admin: 11/04/20 09:16 Dose: 5,000 unit Documented by: Lactated Ringer's (Lr) 1,000 mls @ 100 mls/hr IV .Q10H [facility] Stop: 11/04/20 16:59 Last Admin: 11/04/20 09:13 Dose: 100 mls/hr Documented by: Levofloxacin (Levaquin 250 Mg/50 Ml) 250 mg in 50 mls @ 50 mls/hr IV Q24H [facility] Lisinopril (Lisinopril 5 Mg Tablet) 10 mg PO DAILY [facility] Last Admin: 11/04/20 13:31 Dose: Not Given Documented by: Mineral Oil (Min Oil/Dimethicon/Coconut Oil 92 Gm Tube) 1 applic TOP PRN PRN PRN Reason: Skin Care Last Admin: 11/04/20 13:33 Dose: 1 applic Documented by: Ondansetron HCl (Ondansetron Odt 4 Mg Tablet) 4 mg TL Q6HR PRN PRN Reason: Nausea / Vomiting Ondansetron HCl (Ondansetron 4 Mg/2 Ml Vial) 4 mg IVP Q6HR PRN PRN Reason: Nausea / Vomiting Oxycodone HCl (Oxycodone 5 Mg Tablet) 5 mg PO Q4HR PRN PRN Reason: Pain 5 to 7 Quetiapine Fumarate (Quetiapine 25 Mg Tablet) 25 mg PO QPM [facility] Sodium Chloride (Sodium Chloride Flush 0.9% 10 Ml Syringe) 10 ml IVP PRN PRN PRN Reason: NEEDED PER PROVIDER ORDERS Sodium Chloride (Sodium Chloride Flush 0.9% 10 Ml Syringe) 10 ml IVP 0100,0900,1700 [facility] Last Admin: 11/04/20 09:15 Dose: Not Given Documented by: Aspirin [Aspir 81] 81 mg PO 09/22/13 Gabapentin [Neurontin] 300 mg PO 09/22/13 Hydrochlorothiazide 25 mg PO 09/22/13 Lisinopril 10 mg PO 09/22/13 Simvastatin 40 mg PO 09/22/13 Objective - Vital Signs/Intake & Output Reviewed Vital Signs: Yes Vital Signs: Vital Signs x48h Temp Pulse Resp BP Pulse Ox 11/04/20 13:00 36.6 C 67 18 121/70 100 11/04/20 07:44 36.6 C 61 20 120/66 100 Intake & Output: Intake & Output 11/01/20 11/02/20 11/03/20 11/04/20 23:59 23:59 23:59 23:59 Intake Total 201.667 998.333 Balance 201.667 998.333 - Objective General Appearance: positive: Other (He is lethargic and has been asleep most of the day. Will wake up to answer a few questions. He is unhappy with being woken up and will quickly go back to sleep.) Eyes Bilateral: positive: EOMI, Conjunctivae nml ENT: positive: ENT inspection nml Neck: positive: Nml inspection Respiratory: positive: No respiratory distress. negative: Wheezes, Rales Cardiovascular: positive: Regular rate & rhythm, No murmur. negative: Tachycardia Abdomen: positive: Non-tender, No distention. negative: Tenderness Skin: positive: Warm, Dry Extremities: positive: No pedal edema Neurologic/Psychiatric: positive: Disoriented to place (He tells me he knows where he is but he will not answer.), Other (Neuro exam is limited as patient is not cooperative. He is able to move all 4 extremities and no obvious deficits.). negative: Mood/affect nml (He is agitated with pressured speech when awake.), Disoriented to person - Lab Results Fish Bones: 11/04/20 04:35 11/04/20 04:35 Other Labs: Lab Results x24hrs 11/04/20 11/04/20 11/03/20 Range/Units 04:35 04:35 21:02 WBC 10.5 (4.8-10.8) x10^3/uL RBC 3.50 L (4.70-6.10) 10^6/uL Hgb 11.4 L (14.0-18.0) g/dL Hct 34.9 L (42.0-52.0) % MCV 99.7 H (80.0-94.0) fL MCH 32.6 H (27.0-31.0) pg MCHC 32.7 (32.0-36.0) g/dL RDW 13.2 (12.0-15.0) % Plt Count 197 (130-450) 10^3/uL MPV 10.4 (7.4-11.4) fL Neut # (Auto) 7.5 H (1.5-6.6) 10^3/uL Lymph # (Auto) 1.8 (1.5-3.5) 10^3/uL [place] # (Auto) 1.1 H (0.0-1.0) 10^3/uL Eos # (Auto) 0.0 (0.0-0.7) 10^3/uL Baso # (Auto) 0.0 (0.0-0.1) 10^3/uL Absolute Nucleated RBC 0.00 x10^3/uL Nucleated RBC % 0.0 /100WBC Sodium 138 (135-145) mmol/L Potassium 3.6 (3.5-5.0) mmol/L Chloride 104 (101-111) mmol/L Carbon Dioxide 24 (21-32) mmol/L Anion Gap 10.0 (6-13) BUN 28 H (6-20) mg/dL Creatinine 0.7 (0.6-1.2) mg/dL Estimated GFR (MDRD) 106 (>89) Glucose 86 (70-100) mg/dL Calcium 8.9 (8.5-10.3) mg/dL Phosphorus (2.5-4.6) mg/dL Magnesium (1.7-2.8) mg/dL Total Bilirubin (0.2-1.0) mg/dL AST (10-42) IU/L ALT (10-60) IU/L Alkaline Phosphatase (42-121) IU/L Total Creatine Kinase (22-269) IU/L Total Protein (6.7-8.2) g/dL Albumin (3.2-5.5) g/dL Globulin (2.1-4.2) g/dL Albumin/Globulin Ratio (1.0-2.2) Urine Color Urine Clarity (CLEAR) Urine pH (5.0-7.5) PH Ur Specific Gifford (1.002-1.030) Urine Protein (NEGATIVE) mg/dL Urine Glucose (UA) (NEGATIVE) mg/dL Urine Ketones (NEGATIVE) mg/dL Urine Occult Blood (NEGATIVE) Urine Nitrite (NEGATIVE) Urine Bilirubin (NEGATIVE) Urine Urobilinogen (NORMAL) E.U./dL Ur Leukocyte Esterase (NEGATIVE) Urine RBC (0-5) /HPF Urine WBC (0-3) /HPF Ur Squamous Epith Cells (<= Few) Urine Bacteria (None Seen) /HPF Ur Microscopic Review Urine Culture Comments Nasal Adenovirus (PCR) NOT DETECTED Nasal B. parapertussis DNA (PCR) NOT DETECTED Nasal Coronavir 229E PCR NOT DETECTED Nasal Coronavir HKU1 PCR NOT DETECTED Nasal Coronavir NL63 PCR NOT DETECTED Nasal Coronavir OC43 PCR NOT DETECTED Nasal Enterovir/Rhinovir PCR NOT DETECTED Nasal Influenza B PCR NOT DETECTED Nasal Influenza A PCR NOT DETECTED Nasal Parainfluen 1 PCR NOT DETECTED Nasal Parainfluen 2 PCR NOT DETECTED Nasal Parainfluen 3 PCR NOT DETECTED Nasal Parainfluen 4 PCR NOT DETECTED Nasal RSV (PCR) NOT DETECTED Nasal B.pertussis DNA PCR NOT DETECTED Nasal C.pneumoniae (PCR) NOT DETECTED Shayne Human Metapneumo PCR NOT DETECTED Nasal M.pneumoniae (PCR) NOT DETECTED Nasal SARS-CoV-2 (PCR) NOT DETECTED 11/03/20 11/03/20 11/03/20 Range/Units 20:37 19:12 19:12 WBC 13.3 H (4.8-10.8) x10^3/uL RBC 3.99 L (4.70-6.10) 10^6/uL Hgb 13.3 L (14.0-18.0) g/dL Hct 39.4 L (42.0-52.0) % MCV 98.7 H (80.0-94.0) fL MCH 33.3 H (27.0-31.0) pg MCHC 33.8 (32.0-36.0) g/dL RDW 13.2 (12.0-15.0) % Plt Count 234 (130-450) 10^3/uL MPV 9.7 (7.4-11.4) fL Neut # (Auto) 10.2 H (1.5-6.6) 10^3/uL Lymph # (Auto) 1.8 (1.5-3.5) 10^3/uL [place] # (Auto) 1.2 H (0.0-1.0) 10^3/uL Eos # (Auto) 0.0 (0.0-0.7) 10^3/uL Baso # (Auto) 0.0 (0.0-0.1) 10^3/uL Absolute Nucleated RBC 0.00 x10^3/uL Nucleated RBC % 0.0 /100WBC Sodium 139 (135-145) mmol/L Potassium 4.2 (3.5-5.0) mmol/L Chloride 102 (101-111) mmol/L Carbon Dioxide 26 (21-32) mmol/L Anion Gap 11.0 (6-13) BUN 33 H (6-20) mg/dL Creatinine 0.9 (0.6-1.2) mg/dL Estimated GFR (MDRD) 80 L (>89) Glucose 101 H (70-100) mg/dL Calcium 9.8 (8.5-10.3) mg/dL Phosphorus 2.5 (2.5-4.6) mg/dL Magnesium 2.0 (1.7-2.8) mg/dL Total Bilirubin 2.0 H (0.2-1.0) mg/dL AST 54 H (10-42) IU/L ALT 22 (10-60) IU/L Alkaline Phosphatase 58 (42-121) IU/L Total Creatine Kinase 239 (22-269) IU/L Total Protein 6.8 (6.7-8.2) g/dL Albumin 3.7 (3.2-5.5) g/dL Globulin 3.1 (2.1-4.2) g/dL Albumin/Globulin Ratio 1.2 (1.0-2.2) Urine Color DARK YELLOW Urine Clarity CLEAR (CLEAR) Urine pH 5.5 (5.0-7.5) PH Ur Specific Gifford >=1.030 H (1.002-1.030) Urine Protein TRACE (NEGATIVE) mg/dL Urine Glucose (UA) NEGATIVE (NEGATIVE) mg/dL Urine Ketones 40 H (NEGATIVE) mg/dL Urine Occult Blood LARGE H (NEGATIVE) Urine Nitrite NEGATIVE (NEGATIVE) Urine Bilirubin NEGATIVE (NEGATIVE) Urine Urobilinogen 1 (NORMAL) (NORMAL) E.U./dL Ur Leukocyte Esterase TRACE H (NEGATIVE) Urine RBC TNTC H (0-5) /HPF Urine WBC 6-10 H (0-3) /HPF Ur Squamous Epith Cells FEW Squamous (<= Few) Urine Bacteria None Seen (None Seen) /HPF Ur Microscopic Review INDICATED Urine Culture Comments INDICATED Nasal Adenovirus (PCR) Nasal B. parapertussis DNA (PCR) Nasal Coronavir 229E PCR Nasal Coronavir HKU1 PCR Nasal Coronavir NL63 PCR Nasal Coronavir OC43 PCR Nasal Enterovir/Rhinovir PCR Nasal Influenza B PCR Nasal Influenza A PCR Nasal Parainfluen 1 PCR Nasal Parainfluen 2 PCR Nasal Parainfluen 3 PCR Nasal Parainfluen 4 PCR Nasal RSV (PCR) Nasal B.pertussis DNA PCR Nasal C.pneumoniae (PCR) Shayne Human Metapneumo PCR Nasal M.pneumoniae (PCR) Nasal SARS-CoV-2 (PCR) ABX Reporting Has patient been on IV antibiotics over the past 48 hours?: Yes Assessment/Plan - Problem List (1) Acute encephalopathy Impression: He is still encephalopathic and it is unclear if this is just due to his underlying dementia or if there could be a component of infection given his urinalysis did reveal pyuria. He has been quite lethargic today and although he will wake up at times, he will quickly go back to sleep. There are no obvious deficits on exam but this is limited due to agitation when he is awake. CT of the head on admission was unremarkable. His TSH is within normal limits. I do wonder there could be a component of medication effect given he was just recently started on Seroquel. At this time, we will continue to avoid all sedat dora. We have decreased his Seroquel dose to half but will consider discontinuing this. We will check an ammonia level but low suspicion for a component of hepatic encephalopathy. We would consider MRI but this is not available over this weekend and I am not sure that he would be able to stay sti ll long enough to get an adequate image. We could also consider a lumbar puncture but given the lack of fever, neck pain there is low suspicion for meningitis and once again I am not sure that he would let us obtain a lumbar puncture. We will keep him on IV antibiotics and continue to monitor his neurologic status. (2) UTI (urinary tract infection) Impression: The concern is for a possible infection contributing to his encephalopathy. His urinalysis did reveal trace leukocyte esterase and pyuria although there was no bacteria seen on the urinalysis. This could just be sterile pyuria but urine culture is pending. We will keep him on Levaquin IV given his penicillin allergy. Follow-up cultures. (3) Dementia with behavioral disturbance Impression: His encephalopathy may be related to his underlying dementia with behavioral disturbances. As mentioned above, he was started on Seroquel and we have decrea sed his dose as we believe it may potentially be contributing to his encephalopathy. We will consider discontinuing this if necessary. We will continue to avoid all sedatives and further work-up as mentioned above. He may ultimately benefit from a memory care unit but the plan will likely be to d is[facility] him to [facility]. Qualifiers: Dementia type: Alzheimer's Alzheimer's disease onset: unspecified onset Q ualified Code(s): G30.9 - Alzheimer's disease, unspecified; F02.81 - Dementia in other diseases classified elsewhere with behavioral disturbance (4) HTN (hypertension) Impression: He is normotensive on his current dose of lisinopril. We are holding hydrochlorothiazide as we are hydrating him given his BUN was slightly elevated. Qualifiers: Hypertension type: essential hypertension Qualified Code(s): I10 - Essential (primary) hypertension
[2020-11-04] MEDS ORDERED: SODIUM CHLORIDE 0.9% 250 ML IV PRN (19:22)
[2020-11-04] MEDS ORDERED: QUEtiapine 25 MG TABLET PO SCH (21:00)
[2020-11-05] MEDS: SODIUM CHLORIDE FLUSH 0.9% 10 ML SYRINGE IVP SCH ×2 (00:45→09:10)
[2020-11-05 05:21] LABS: BASOPHILS % (AUTO) 0.1 %; EOSINOPHILS # (AUTO) 0.1 10^3/uL (0.0-0.7); EOSINOPHILS % (AUTO) 0.6 %; HCT - HEMATOCRIT 36.5 % (42.0-52.0); HGB - HEMOGLOBIN 11.8 g/dL (14.0-18.0); LYMPHOCYTES # (AUTO) 2.4 10^3/uL (1.5-3.5); LYMPHOCYTES % (AUTO) 27.3 %; MEAN CORPUSCULAR HEMOGLOBIN 33.4 pg (27.0-31.0); MEAN CORPUSCULAR HGB CONC 32.3 g/dL (32.0-36.0); MEAN CORPUSCULAR VOLUME 103.4 fL (80.0-94.0); MONOCYTES % (AUTO) 11.7 %; NEUTROPHILS # (AUTO) 5.1 10^3/uL (1.5-6.6); NEUTROPHILS % (AUTO) 59.1 %; PLT - PLATELET COUNT 209 10^3/uL (130-450); RED BLOOD COUNT 3.53 10^6/uL (4.70-6.10); RED CELL DISTRIBUTION WIDTH 13.6 % (12.0-15.0); WHITE BLOOD COUNT 8.7 x10^3/uL (4.8-10.8)
[2020-11-05 05:48] LABS: CALCIUM 9.2 mg/dL (8.5-10.3); CREATININE 0.7 mg/dL (0.6-1.2); POTASSIUM 3.9 mmol/L (3.5-5.0)
[2020-11-05] MEDS ORDERED: LACTATED RINGERS 1,000 ML IV SCH (06:00)
[2020-11-05] MEDS ORDERED: polyethylene glycoL 3350 17 GM PACKET PO SCH (09:00)
[2020-11-05] MEDS: HEPARIN 5,000 UNIT/ML VIAL SUBQ SCH (09:08)
[2020-11-05 10:17] VITALS: BP 130/72
[2020-11-05] MEDS: lisinopriL 5 MG TABLET PO SCH (10:33)
--- NOTE | 2020-11-05 11:08 | DISCHARGE SUMMARY ---
Discharge Summary Condition at Discharge: Stable - ALLERGIES Allergies/Adverse Reactions: Allergies Allergy/AdvReac Type Severity Reaction Status Date / Time Penicillins Allergy Intermediate Hives Verified 11/03/20 19:04 streptomycin [Streptomycin] Allergy Intermediate Unknown Verified 11/03/20 19:04 - MEDICATIONS Home Medications: Ambulatory Orders Medication Instructions Recorded Confirmed Aspirin [Aspir 81] 81 mg PO 09/22/13 09/22/13 Gabapentin [Neurontin] 300 mg PO 09/22/13 09/22/13 Hydrochlorothiazide 25 mg PO 09/22/13 09/22/13 Lisinopril 10 mg PO 09/22/13 09/22/13 Simvastatin 40 mg PO 09/22/13 09/22/13 QUEtiapine [SEROquel] 50 mg PO BID PRN #60 tablet 11/02/20 - LABS Result Diagrams: 11/05/20 04:50 11/05/20 05:30
--- NOTE | 2020-11-05 11:08 | Discharge Plan ---
"Discharge Plan for SNF / SNF - Discharge Plan And Transition Orders Problem Reviewed?: Yes Disposition: 03 SNF DC/Xfer Condition: Stable Allergies and Adverse Reactions: Allergies Allergy/AdvReac Type Severity Reaction Status Date / Time Penicillins Allergy Intermediate Hives Verified 11/03/20 19:04 streptomycin [Streptomycin] Allergy Intermediate Unknown Verified 11/03/20 19:04 Health Concerns: He was admitted to the hospital due to worsening encephalopathy in a patient who already has dementia. There was concern that he may have had a urinary tract infection given his urinalysis was abnormal and he had a mildly elevated white count. He was treated with IV hydration given he appeared dehydrated and IV Levaquin for suspected urinary tract infection. His urine culture ended up only growing 10-50,000 colonies and it was felt that he did not have an infection and so antibiotics were discontinued. The patient's mental status returned to his baseline. Although he is not oriented at baseline due to his dementia, he did know he was at the hospital and that he was here because of a fall but did not know the year or month. He is on a thiazide at home which we will discontinue on discharge given he was dehydrated. He was also recently started on Seroquel which may have been contributing to his encephalopathy and we will also discontinue this. He will need outpatient follow-up with his primary care provider in 1 week. Plan of Treatment: We have discontinued his hydrochlorothiazide given he was dehydrated. We have also discontinued the Seroquel as this may have been contributing to his encephalopathy and his over sedation. He will continue his lisinopril for his hypertension. No antibiotics were prescribed as his urine culture does not meet criteria for infection. He would also benefit from outpatient physical therapy. - SNF / SNF Transition Orders Admit to (Facility): [facility] living. Discharge Diagnosis: Encephalopathy - resolved. Dehydration - resolved. Asymptomatic bacteriuria - stable. Dementia - stable. Hypertension - stable. Medicare Certification Statement: I certify that [facility] is medically necessary on a continuing basis for any of the conditions for which she/he is receiving care during hospitalization. Notify PCP of admission and forward orders to primary provider for signature. Other Notification Orders: Call PCP immediately if patient develops dyspnea, chest pain/tightness or edema. Additional Bowel Program Orders: If no BM after 2 days, nurse may give M.O.M. 30ml PO PRN and/or ducolax Supp 1 IL and/or TAM 250mg P.O., and/or senna 1-2 tabs PO. On day 3 nurse may give repeat above order until residents constipation is resolved. Medication Orders: PLEASE REFER TO THE DISCHARGE MEDICATION LIST. - Diet Type: Geriatric Texture: Regular Liquids: Thin - Therapies | Activity Therapy: Evaluation | Treat if indicated: PT Assistance Devices: Walker Follow Up: He will need outpatient follow-up with his primary care provider in 1 week."
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
== END 2020-11-05 13:14 | DRG 71 ==
LOC: EDUNIT# → ED 18:55 → SUPCPDRO 18:55 → MS2 21:00 → OBSVTOIN 11-04 15:22
PROVIDERS: ADMIT Internal Medicine; ATTEND Internal Medicine
DX: G93.40 Encephalopathy, unspecified (principal); F02.81 Dementia in other diseases classified elsewhere, unspecified severity, with behavioral disturbance; G30.9 Alzheimer's disease, unspecified; N40.0 Benign prostatic hyperplasia without lower urinary tract symptoms; S39.92XA Unspecified injury of lower back, initial encounter; S09.90XA Unspecified injury of head, initial encounter; F03.90 Unspecified dementia, unspecified severity, without behavioral disturbance, psychotic disturbance, mood disturbance, and anxiety; Z20.822 Contact with and (suspected) exposure to COVID-19; W19.XXXA Unspecified fall, initial encounter; E86.0 Dehydration; Y92.099 Unspecified place in other non-institutional residence as the place of occurrence of the external cause; I10 Essential (primary) hypertension; R45.1 Restlessness and agitation; I25.10 Atherosclerotic heart disease of native coronary artery without angina pectoris; R41.82 Altered mental status, unspecified; R82.71 Bacteriuria; Z66 Do not resuscitate; S50.12XA Contusion of left forearm, initial encounter; S50.11XA Contusion of right forearm, initial encounter; R41.0 Disorientation, unspecified
CPT/HCPCS: 36415; 51701; 70450; 71045; 72125; 72128; 72131; 80048; 80053; 80306; 80307; 81001; 82550; 83690; 83735; 84100; 84443; 85025; 87086; 87181; 87631; 96365; 96368; 96372; 96376; 97161; 99281; 99283; 99285; A6250; A9270; G0378; G0480; J7120; 0202U; 80320; 80329; 81003

== ENCOUNTER 2021-02-24 20:13 | Outpatient (CLI) | payer MEDICARE, OTHER | END 2021-02-24 20:14 | disposition critical access hospital (66) | LOC: EMS 20:13 | DX: R45.6 Violent behavior (principal) | CPT/HCPCS: A0425; A0429 ==

== ENCOUNTER 2021-02-24 20:31 | Emergency (ER) | payer MEDICARE, OTHER ==
[2021-02-24] MEDS ORDERED: QUEtiapine 25 MG TABLET PO STA (20:37)
[2021-02-24] MEDS ORDERED: HALOPERIDOL 5 MG/ML VIAL IM STA (20:52)
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
[2021-02-24 21:11] LABS: BASOPHILS % (AUTO) 0.5 %; EOSINOPHILS # (AUTO) 0.1 10^3/uL (0.0-0.7); EOSINOPHILS % (AUTO) 1.4 %; HCT - HEMATOCRIT 38.4 % (42.0-52.0); HGB - HEMOGLOBIN 12.6 g/dL (14.0-18.0); LYMPHOCYTES # (AUTO) 3.3 10^3/uL (1.5-3.5); LYMPHOCYTES % (AUTO) 51.3 %; MEAN CORPUSCULAR HGB CONC 32.8 g/dL (32.0-36.0); MEAN CORPUSCULAR VOLUME 94.3 fL (80.0-94.0); MEAN PLATELET VOLUME 10.1 fL (7.4-11.4); MONOCYTES # (AUTO) 0.7 10^3/uL (0.0-1.0); MONOCYTES % (AUTO) 11.3 %; NEUTROPHILS # (AUTO) 2.2 10^3/uL (1.5-6.6); PLT - PLATELET COUNT 216 10^3/uL (130-450); RED BLOOD COUNT 4.07 10^6/uL (4.70-6.10); RED CELL DISTRIBUTION WIDTH 13.1 % (12.0-15.0); WHITE BLOOD COUNT 6.4 x10^3/uL (4.8-10.8)
[2021-02-24 21:27] LABS: ACETAMINOPHEN < 10 ug/mL (10-30); ALBUMIN 3.6 g/dL (3.2-5.5); ALBUMIN/GLOBULIN RATIO 1.3 (1.0-2.2); ALKALINE PHOSPHATASE 77 IU/L (42-121); ALT ALANINE AMINOTRANSFERASE 12 IU/L (10-60); AST ASPARTATE AMINOTRANSFERASE 20 IU/L (10-42); BILIRUBIN,TOTAL 0.7 mg/dL (0.2-1.0); BUN - BLOOD UREA NITROGEN 24 mg/dL (6-20); CALCIUM 9.5 mg/dL (8.5-10.3); CARBON DIOXIDE - CO2 28 mmol/L (21-32); CHLORIDE 102 mmol/L (101-111); ETOH - ETHANOL < 5.0 mg/dL; GFR - MDRD 71 (>89); GLUCOSE 105 mg/dL (70-100); LIPASE 43 U/L (22-51); POTASSIUM 4.1 mmol/L (3.5-5.0); SALICYLATE < 6.0 mg/dL; SODIUM 139 mmol/L (135-145); TOTAL PROTEIN 6.3 g/dL (6.7-8.2)
[2021-02-24 22:36] LABS: CORONAVIRUS 229E-RESP PCR NOT DETECTED; CORONAVIRUS HKU1-RESP PCR NOT DETECTED; CORONAVIRUS NL63-RESP PCR NOT DETECTED; CORONAVIRUS OC43-RESP PCR NOT DETECTED; HUMAN METAPNEUMOVIRUS NOT DETECTED; INFLUENZA A- RESP PCR PANEL NOT DETECTED; RHINOVIRUS/ENTEROVIRUS NOT DETECTED; SARS-CoV-2 -RESP PCR PANEL NOT DETECTED
[2021-02-24 22:37] LABS: B. PARAPERTUSSIS- RESP PCR PAN NOT DETECTED; B. PERTUSSIS- RESP PCR PANEL NOT DETECTED; C. PNEUMONIAE- RESP PCR PANEL NOT DETECTED; INFLUENZA B - RESP PCR PANEL NOT DETECTED; M. PNEUMONIAE- RESP PCR PANEL NOT DETECTED; PARAINFLUENZA VIRUS 1 NOT DETECTED; PARAINFLUENZA VIRUS 2 NOT DETECTED; PARAINFLUENZA VIRUS 3 NOT DETECTED; PARAINFLUENZA VIRUS 4 NOT DETECTED; RSV- RESP PCR PANEL NOT DETECTED
[2021-02-25 04:23] LABS: MUDS CUTOFF CONCENTRATIONS CUTOFF CONC BELOW:
[2021-02-25 04:24] LABS: BILIRUBIN,URINE NEGATIVE (NEGATIVE); GLUCOSE, URINE (UA) NEGATIVE (NEGATIVE); KETONES,URINE (UA) NEGATIVE (NEGATIVE); LEUKOCYTE ESTERASE, URINE NEGATIVE (NEGATIVE); NITRITE,URINE NEGATIVE (NEGATIVE); OCCULT BLOOD,URINE NEGATIVE (NEGATIVE); PROTEIN,URINE NEGATIVE (NEGATIVE); UROBILINOGEN,URINE 0.2 (NORMAL) E.U./dL (NORMAL)
[2021-02-25 04:25] LABS: CLARITY,URINE CLEAR (CLEAR)
[2021-02-25 04:35] LABS: AMPHETAMINE SCREEN,URINE NEGATIVE (NEGATIVE); BARBITURATE SCREEN,UR NEGATIVE (NEGATIVE); BENZODIAZEPINES SCREEN, URINE NEGATIVE (NEGATIVE); COCAINE SCREEN URINE NEGATIVE (NEGATIVE); METHADONE SCREEN, URINE NEGATIVE (NEGATIVE); METHAMPHETAMINES SCREEN, URINE NEGATIVE (NEGATIVE); OPIATE SCREEN, URINE NEGATIVE (NEGATIVE); OXYCODONE SCREEN, URINE NEGATIVE (NEGATIVE); PROPOXYPHENE SCREEN, URINE NEGATIVE (NEGATIVE); THC CANNABINOID SCREEN, URINE NEGATIVE (NEGATIVE); TRICYCLIC ANTIDEPRESSANT,URINE NEGATIVE (NEGATIVE)
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
[2021-02-25] MEDS ORDERED: HALOPERIDOL 5 MG/ML VIAL ONE (12:04)
[2021-02-25] MEDS: QUEtiapine 25 MG TABLET PO SCH ×3 (12:05→22:55)
[2021-02-25] MEDS ORDERED: HALOPERIDOL 5 MG/ML VIAL IM STA ×3 (12:15→22:47)
--- NOTE | 2021-02-25 12:15 | ED Physician Documentation ---
ED Addendum - Addendum Addendum: 02/25/21 12:13The patient reportedly was variable on taking his oral Seroquel last evening and overnight. Apparently did take this morning's dose. He was having breakfast or lunch and started to get a little louder and angry about some of the food. He was walking around in the department and not directing well by verbal coaxing and direction. He declined his lunchtime Seroquel. He had Haldol IM ordered as needed and this seemed appropriate to dose before he gets more agitated. He did sit calmly and accepted the injection. He continued then with eating the rest of lunch. Social work states [facility] was hopefully going to take the patient but apparently Rosa had not advised them about a spend down portion of his insurance and was going to be moving to Medicaid within a couple of months. That changed to their view and acceptance of him and so they declined taking him as planned. We will look for other placement at this point.
--- NOTE | 2021-02-25 22:50 | ED Physician Documentation ---
Face to Face for Restraints - Immediate Situation Face to Face Evaluation Date: 02/25/21 (10:45pm) Face to Face Evaluation Time: 10:45 (10:45pm) Restraint Situation: Chemical Patient's Reactions to the Intervention: Physically safe, Resting quietly - Behavioral Condition Attitude: Guarded Behavior: Uncooperative, Belligerent, Agitated Orientation: Not oriented to person, place, time, and situation (noncompliant with history, yelling at staff and roommate) Mood: Labile, Angry - Evaluation Review of Systems: unable d/t dementia Pertinent History/Illicit Drugs/Medications/Results: dementia, on seroquel, refused po seroquel at higher dose. - Plan Need to Continue or Terminate Violent or Chemical Restraint: Patient calm after initial intervention. Will reevaluate need for chemical restraints if escalated again.
[2021-02-26] MEDS: QUEtiapine 25 MG TABLET PO SCH ×3 (07:00→22:00)
[2021-02-27] MEDS: QUEtiapine 25 MG TABLET PO SCH ×3 (13:09→21:42)
[2021-02-28] MEDS: QUEtiapine 25 MG TABLET PO SCH ×3 (08:20→22:01)
--- NOTE | 2021-02-28 14:26 | ED Physician Documentation ---
ED Addendum - Addendum Addendum: 02/28/21 14:26 No outbursts over the last couple of days, seems much more calm on the scheduled Seroquel. Cooperative with nursing staff.
[2021-03-01] MEDS: QUEtiapine 25 MG TABLET PO SCH ×3 (09:14→22:40)
[2021-03-01] MEDS ORDERED: [UNRECOGNIZED DRUG - OTHER] IM ONE (15:00)
--- NOTE | 2021-03-01 16:19 | ED Physician Documentation ---
ED Addendum - Addendum Addendum: 03/01/21 16:19 Calm today without outbursts. I was notified that he only has had one Covid shot and he may need a second for placement and he received a second during a vaccine today.
[2021-03-02] MEDS: QUEtiapine 25 MG TABLET PO SCH ×3 (09:53→22:18)
[2021-03-02] MEDS ORDERED: ACETAMINOPHEN 325 MG TABLET PO STA (11:47)
[2021-03-03] MEDS: QUEtiapine 25 MG TABLET PO SCH ×4 (06:48→21:34)
--- NOTE | 2021-03-03 10:05 | ED Physician Documentation ---
ED Addendum - Addendum Addendum: 03/03/21 10:03 89-year-old male with advanced dementia and behavioral disturbance has been in the emergency department for 1 week now and his behavior has improved dramatically. He is currently on Seroquel 3 times a day which he is taking cooperatively and he has had no outbursts. We have had difficulty in placement of the patient and we called back to his facility of origin indicating to them that with treatment he has improved and they were unwilling to take him back. He remains boarded in the ED. 03/03/21 10:04
[2021-03-04] MEDS ORDERED: haloperidoL 1 MG TABLET PO STA ×2 (02:34→05:35)
[2021-03-04] MEDS: QUEtiapine 25 MG TABLET PO SCH ×3 (05:40→20:26)
[2021-03-04] MEDS ORDERED: haloperidoL 1 MG TABLET PO PRN (14:15)
[2021-03-04] MEDS ORDERED: HALOPERIDOL 5 MG/ML VIAL IM STA (14:15)
[2021-03-05] MEDS: QUEtiapine 25 MG TABLET PO SCH ×3 (14:51→21:48)
[2021-03-06] MEDS: QUEtiapine 25 MG TABLET PO SCH ×3 (06:04→22:06)
[2021-03-07] MEDS: QUEtiapine 25 MG TABLET PO SCH ×2 (05:52→14:38)
--- NOTE | 2021-03-07 09:51 | ED Physician Documentation ---
ED Addendum - Addendum Addendum: 03/07/21 09:50 And has been found at [facility]. Will give a prescription for the Seroquel to be continued there. Transportation to be arranged. Departure - Departure Disposition: [facility] DC/Xfer Clinical Impression: Neurocognitive disorder Dementia with behavioral disturbance Qualifiers: Dementia type: unspecified type Qualified Code(s): F03.91 - Unspecified dementia with behavioral disturbance Condition: Stable Prescriptions: QUEtiapine [SEROquel] 25 mg PO TID #30 tablet
[2021-03-07 15:14] VITALS: BP 134/77
== END 2021-03-07 15:16 ==
LOC: EDUNIT# → ED 20:31
DX: F01.51 Vascular dementia, unspecified severity, with behavioral disturbance (principal); F03.91 Unspecified dementia, unspecified severity, with behavioral disturbance; Z20.822 Contact with and (suspected) exposure to COVID-19; Z23 Encounter for immunization; R45.1 Restlessness and agitation; R44.3 Hallucinations, unspecified; Z78.1 Physical restraint status; I10 Essential (primary) hypertension; Z79.82 Long term (current) use of aspirin; Z66 Do not resuscitate
CPT/HCPCS: 0011A; 36415; 80053; 80306; 80307; 81003; 83690; 84443; 85025; 87631; 91301; 96372; 99285; A9270; G0425; G0480; Q3014; 0202U; 80320; 80329; 81001; 87086